=== PATIENT | male | born 1940 | race Caucasian/White ===

== ENCOUNTER 2016-08-31 09:18 | Emergency (ER) | payer MEDICARE ==
[~2016-08-31 09:18] MED LIST: ADULT LOW DOSE81 MG PO; ALDACTONE 25MG25 MG PO; AMARYL 2MG TABLE2 MG PO; BUMEX 1MG TABLET1 MG PO; CORDARONE 200M200 MG PO; CORDARONE200 MG PO; COREG 12.5MG12.5 MG PO; COUMADIN 1MG TAB1 MG PO; COUMADIN1 MG PO; COUMADIN5 MG PO; COZAAR50 MG PO; CPAP; CRESTOR20 MG PO; FLOMAX 0.4 MG0.4 MG PO; IRON325 MG PO; LASIX40 MG PO; LEVAQUIN TAB 2250 MG PO; LEVEMIR100 UNIT/1 SC; LOPRESSOR 25 MG25 MG PO; MAG-OX 400 TAB400 MG PO; MAGOX 400400 MG PO; MIDODRINE HCL5 MG PO; NEPRO CARB ST1000 ML PO; NITROSTAT 0.40.4 MG SL; PHOSLO 667 MG667 MG PO; PRINIVIL5 MG PO; PROCRIT10000 UNIT SQ; PROTONIX 40 MG40 M1 PO; PROTONIX40 MG PO; TOPROL XL25 MG PO; TRAZODONE HCL50 MG PO; TYLENOL 325MG325 MG PO; VANCOMYCIN HCL1 GM; VANCOMYCIN1 GM/2501 IV; ZYLOPRIM 100 M100 MG PO
== END 2016-08-31 09:20 | disposition expired ==
LOC: ER1 09:18
DX: I46.9 Cardiac arrest, cause unspecified (principal)
CPT/HCPCS: 92950; 99284; J0171